=== PATIENT | male | born 1960 | race Caucasian/White ===

== ENCOUNTER 2017-02-10 16:06 | Observation (INO) | payer BC ==
[~2017-02-10] VITALS: Ht 170.2 cm; Wt 73.2 kg
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
[2017-02-10 16:30] LABS: BASOPHIL % 0.2 %; EOSINOPHIL % 0.1 %; HEMATOCRIT 38.3 % (37.0-53.0); HEMOGLOBIN 13.5 g/dL (12.0-17.0); IMMATURE GRANULOCYTE % 0.4 %; LYMPHOCYTE # 1.2 K/uL (0.8-4.0); MCHC 35.2 gm/dL (32.0-36.5); MCV 93.6 fl (83.0-98.0); MONOCYTE # 0.7 K/uL (0.0-1.0); MONOCYTE % 6.6 %; MPV 10.2 fl (9.4-12.4); NEUTROPHIL # (ANC) 8.9 K/uL (1.4-9.0); NEUTROPHIL % 81.7 %; NRBC % 0 /100WBC (0-0.00); PLATELET COUNT 176 K/uL (150-450); RBC 4.09 M/uL (4.00-6.00); RDW-CV 12.5 % (11.9-14.6); WBC 10.9 K/uL (4.0-11.0)
[2017-02-11 10:33] LABS: HEMATOCRIT 38.3 % (37.0-53.0); HEMOGLOBIN 13.2 g/dL (12.0-17.0)
[2017-02-12 06:11] LABS: BASOPHIL % 0.6 %; EOSINOPHIL # 0.2 K/uL (0.0-0.5); EOSINOPHIL % 3.8 %; HEMATOCRIT 35.2 % (37.0-53.0); HEMOGLOBIN 12.2 g/dL (12.0-17.0); IMMATURE GRANULOCYTE % 0.4 %; LYMPHOCYTE # 1.6 K/uL (0.8-4.0); MCH 33.5 pg (27.0-34.0); MCHC 34.7 gm/dL (32.0-36.5); MCV 96.7 fl (83.0-98.0); MONOCYTE # 0.5 K/uL (0.0-1.0); MPV 10.5 fl (9.4-12.4); NEUTROPHIL # (ANC) 2.9 K/uL (1.4-9.0); NEUTROPHIL % 55.2 %; NRBC % 0 /100WBC (0-0.00); PLATELET COUNT 155 K/uL (150-450); RBC 3.64 M/uL (4.00-6.00); RDW-CV 12.8 % (11.9-14.6); WBC 5.2 K/uL (4.0-11.0)
[2017-02-12 06:37] LABS: ALT 23 IU/L (12-78); ANION GAP 8.5 (10.0-19.0); AST 24 IU/L (10-40); BLOOD UREA NITROGEN 10 mg/dL (6-24); CHLORIDE 106 mMol/L (96-110); CO2 30 mMol/L (22-32); ESTIMATED GFR (MDRD EQUATION) > 60; POTASSIUM 4.5 mMol/L (3.7-5.1); SODIUM 140 mMol/L (135-145); TOTAL BILIRUBIN 0.5 mg/dL (0.0-1.5); TOTAL PROTEIN 5.9 g/dL (6.0-8.4)
[2017-02-12 06:39] LABS: ALK PHOS 23 IU/L (33-138)
[2017-02-12] MEDS ORDERED: COLACE100 MG PO (11:39)
[2017-02-12] MEDS ORDERED: LOVENOX 4040 MG/0.4 SUB-Q (11:39)
[2017-02-12] MEDS ORDERED: PERCOCET 5-3251 EACH PO (11:41)
== END 2017-02-12 13:50 | disposition disaster alternative care site (69) ==
LOC: GACC 16:06 → GICU 17:10
PROVIDERS: Family Medicine; Orthopaedic Surgery; Physician Assistant; ADMIT Surgery
DX: S22.42XA Multiple fractures of ribs, left side, initial encounter for closed fracture (principal); S82.61XA Displaced fracture of lateral malleolus of right fibula, initial encounter for closed fracture; S40.012A Contusion of left shoulder, initial encounter; E04.1 Nontoxic single thyroid nodule; V89.2XXA Person injured in unspecified motor-vehicle accident, traffic, initial encounter; R04.89 Hemorrhage from other sites in respiratory passages
CPT/HCPCS: G0378; J1650

== ENCOUNTER → 2017-02-10 | Outpatient (CLI) | payer BC ==
[~2017-02-10] MED LIST: COLACE100 MG PO; LOVENOX 4040 MG/0.4 SUB-Q; PERCOCET 5-3251 EACH PO
== END | disposition disaster alternative care site (69) ==
LOC: GAIR 15:16
DX: R07.9 Chest pain, unspecified (principal); S22.39XA Fracture of one rib, unspecified side, initial encounter for closed fracture; S82.402A Unspecified fracture of shaft of left fibula, initial encounter for closed fracture; V86.99XA Unspecified occupant of other special all-terrain or other off-road motor vehicle injured in nontraffic accident, initial encounter
CPT/HCPCS: A0422; A0431; A0436; J3010